=== PATIENT | male | born 1955 | race Caucasian/White ===

== ENCOUNTER 2020-09-08 12:47 | Outpatient (CLI) | payer MEDICARE | END 2020-09-08 12:48 | disposition home or self-care (01) | LOC: MRI 12:47 | PROVIDERS: ATTEND Internal Medicine Hematology & Oncology | DX: C34.90 Malignant neoplasm of unspecified part of unspecified bronchus or lung (principal); C79.51 Secondary malignant neoplasm of bone | CPT/HCPCS: 36415; 70553; 80053; 84153 ==

== ENCOUNTER 2020-09-09 09:43 | Outpatient (CLI) | payer MEDICARE | END 2020-09-09 09:44 | disposition home or self-care (01) | LOC: PET 09:43 | PROVIDERS: ATTEND Internal Medicine Hematology & Oncology | DX: C34.90 Malignant neoplasm of unspecified part of unspecified bronchus or lung (principal); C79.51 Secondary malignant neoplasm of bone; J98.4 Other disorders of lung | CPT/HCPCS: 78815; A9552 ==

== ENCOUNTER 2020-09-12 22:04 | Inpatient (IN) | payer MEDICARE ==
[2020-09-12] MEDS ORDERED: Ketorolac Tromethamine 30 MG/ML VIAL ONE (22:54)
[2020-09-12] MEDS ORDERED: Acetaminophen 500 MG TAB ONE (22:54)
[2020-09-12 23:10] LABS: INR-International Normal Ratio 1.1; PTT 27.3 sec (22.9-36.1); Prothrombin Time 13.9 sec (12.0-14.7)
[2020-09-12 23:20] LABS: ALT (SGPT) 53 U/L (8-55); AST (SGOT) 24 U/L (5-34); Albumin 3.6 g/dL (3.4-4.8); Alkaline Phosphatase 124 U/L (40-110); Anion Gap 15 mmol/L (10-20); BUN (Urea Nitrogen) 16 mg/dL (8.4-25.7); Bilirubin, Total 0.7 mg/dL (0.2-1.2); Calc. Creatinine Clearance 0 mL/min (70-130); Calcium 9.5 mg/dL (7.8-10.44); Carbon Dioxide 27 mmol/L (23-31); Chloride 97 mmol/L (98-107); Globulin 2.7 g/dL (2.4-3.5); Glucose 120 mg/dL (80-115); Potassium 4.4 mmol/L (3.5-5.1); Protein, Total 6.3 g/dL (5.8-8.1); Sodium 135 mmol/L (136-145)
[2020-09-12 23:34] LABS: Band 13 % (5-11); Lymphocytes 2 % (21-51); MDiff Complete? YES; Mean Corpuscular HGB CONC 33.2 g/dL (32.0-36.0); Mean Corpuscular Volume 96.3 fL (78.0-98.0); Mean Platelet Volume 8.5 fL (7.4-10.4); Monocytes 7 % (0-10); Neutrophil 77 % (42-75); Platelet Count 349 thou/uL (130-400); RBC Distribution Width 11.8 % (11.5-14.5); Red Blood Cell (RBC) Count 4.38 mill/uL (4.70-6.10); Reflex for Review?? YES; White Blood Cell (WBC) Count 43.3 thou/uL (4.8-10.8)
[2020-09-12 23:47] LABS: Bilirubin Negative (Negative); Blood, Urine Negative (Negative); Clarity Clear (Clear); Glucose, Urine (Dipstick) Normal (Negative); Ketone, Urine Negative (Negative); Leukocyte Negative Leu/uL (Negative); Nitrite Negative (Negative); Protein, Urine (Dipstick) Negative (Neg-Trace); Urobilinogen Normal mg/dL (Less than 2)
[2020-09-13] MEDS ORDERED: Cefepime 2 GM VIAL ONE (00:11)
[2020-09-13] MEDS ORDERED: cloNIDine 0.1 MG TAB ONE (00:11)
[2020-09-13] MEDS ORDERED: Vancomycin 1.5 GRAM/300 ML BAG 1.5 GM in Premix Bag 1 BAG IVPB SCH (00:15)
[2020-09-13] MEDS ORDERED: Ondansetron ODT 4 MG TAB PO PRN (02:18)
[2020-09-13] MEDS ORDERED: Acetaminophen 500 MG TAB PO PRN (02:18)
[2020-09-13] MEDS ORDERED: Ondansetron PF 4 MG/2 ML Vial IVP PRN (02:18)
[2020-09-13 03:24] VITALS: BMI 21.7
[2020-09-13] MEDS: Sodium Chloride 0.9% 1,000 ML IV SCH ×3 (03:56→20:34)
[2020-09-13 04:19] LABS: White Blood Cell (WBC) Count 47.1 thou/uL (4.8-10.8)
[2020-09-13 04:42] LABS: ALT (SGPT) 42 U/L (8-55); AST (SGOT) 18 U/L (5-34); Albumin 2.9 g/dL (3.4-4.8); Alkaline Phosphatase 98 U/L (40-110); Anion Gap 15 mmol/L (10-20); BUN (Urea Nitrogen) 18 mg/dL (8.4-25.7); Bilirubin, Total 0.9 mg/dL (0.2-1.2); Calc. Creatinine Clearance 71 mL/min (70-130); Calcium 8.7 mg/dL (7.8-10.44); Carbon Dioxide 25 mmol/L (23-31); Chloride 102 mmol/L (98-107); Globulin 2.3 g/dL (2.4-3.5); Glucose 129 mg/dL (80-115); Potassium 4.2 mmol/L (3.5-5.1); Protein, Total 5.2 g/dL (5.8-8.1); Sodium 138 mmol/L (136-145)
[2020-09-13 04:46] LABS: Hemoglobin 12.4 g/dL (14.0-18.0); Mean Corpuscular HGB CONC 32.7 g/dL (32.0-36.0); Mean Corpuscular Hemoglobin 31.6 pg (27.0-31.0); Mean Corpuscular Volume 96.5 fL (78.0-98.0); Mean Platelet Volume 8.2 fL (7.4-10.4); Platelet Count 320 thou/uL (130-400); RBC Distribution Width 11.9 % (11.5-14.5); Red Blood Cell (RBC) Count 3.92 mill/uL (4.70-6.10)
[2020-09-13 05:06] LABS: Band 23 % (5-11); Lymphocytes 5 % (21-51); MDiff Complete? YES; Monocytes 3 % (0-10); Neutrophil 69 % (42-75)
[2020-09-13] MEDS: Ketorolac Tromethamine 30 MG/ML VIAL IVP SCH ×4 (05:49→22:31)
[2020-09-13] MEDS: Famotidine 20 MG TAB PO SCH ×2 (09:51→20:34)
[2020-09-13] MEDS: Cefepime 2 GM in Sodium Chloride 0.9% 100 ML IVPB SCH ×3 (09:51→22:32)
[2020-09-13] MEDS: Vancomycin 1 GM in Premix Bag 1 BAG IVPB SCH (12:38)
[2020-09-13] MEDS ORDERED: Morphine 2 MG/ML VIAL SLOW IVP PRN (17:17)
[2020-09-14] MEDS: Vancomycin 1 GM in Premix Bag 1 BAG IVPB SCH ×2 (01:14→12:37)
[2020-09-14] MEDS: Ketorolac Tromethamine 30 MG/ML VIAL IVP SCH ×4 (05:21→23:49)
[2020-09-14] MEDS: Sodium Chloride 0.9% 1,000 ML IV SCH ×3 (06:00→19:30)
[2020-09-14] MEDS: Famotidine 20 MG TAB PO SCH ×2 (09:05→22:09)
[2020-09-14] MEDS: Cefepime 2 GM in Sodium Chloride 0.9% 100 ML IVPB SCH ×3 (09:05→23:49)
[2020-09-14 10:07] LABS: Anion Gap 13 mmol/L (10-20); BUN (Urea Nitrogen) 16 mg/dL (8.4-25.7); Calc. Creatinine Clearance 92 mL/min (70-130); Calcium 8.3 mg/dL (7.8-10.44); Carbon Dioxide 25 mmol/L (23-31); Chloride 105 mmol/L (98-107); Glucose 113 mg/dL (80-115); Potassium 3.7 mmol/L (3.5-5.1); Sodium 139 mmol/L (136-145)
[2020-09-14 10:17] LABS: Band 18 % (5-11); Eosinophils 1 % (0-10); Hemoglobin 12.5 g/dL (14.0-18.0); Lymphocytes 1 % (21-51); MDiff Complete? YES; Mean Corpuscular HGB CONC 32.4 g/dL (32.0-36.0); Mean Corpuscular Hemoglobin 31.9 pg (27.0-31.0); Mean Corpuscular Volume 98.4 fL (78.0-98.0); Mean Platelet Volume 8.3 fL (7.4-10.4); Monocytes 5 % (0-10); Neutrophil 74 % (42-75); Platelet Count 311 thou/uL (130-400); Platelet Morphology Comment Appears Adequate; Polychromasia SLIGHT = 2-3 cells (100X) (0-2/hpf); RBC Distribution Width 11.9 % (11.5-14.5); Red Blood Cell (RBC) Count 3.91 mill/uL (4.70-6.10); White Blood Cell (WBC) Count 35.8 thou/uL (4.8-10.8)
[2020-09-14] MEDS: Morphine 4 MG/ML VIAL SLOW IVP PRN ×2 (15:51→22:31)
[2020-09-14] MEDS ORDERED: fentaNYL 50 mcg/hour Patch TD SCH (17:00)
[2020-09-15] MEDS ORDERED: Vancomycin 1.5 GRAM/300 ML BAG 1.5 GM in Premix Bag 1 BAG IVPB SCH (01:00)
[2020-09-15] MEDS: Sodium Chloride 0.9% 1,000 ML IV SCH ×2 (05:38→12:34)
[2020-09-15] MEDS: Ketorolac Tromethamine 30 MG/ML VIAL IVP SCH ×2 (05:38→12:34)
[2020-09-15] MEDS: Famotidine 20 MG TAB PO SCH (09:03)
[2020-09-15] MEDS: Cefepime 2 GM in Sodium Chloride 0.9% 100 ML IVPB SCH (09:07)
[2020-09-15 11:44] LABS: Hemoglobin 12.4 g/dL (14.0-18.0); Mean Corpuscular Hemoglobin 33.3 pg (27.0-31.0); Mean Corpuscular Volume 97.8 fL (78.0-98.0); Mean Platelet Volume 8.3 fL (7.4-10.4); Platelet Count 294 thou/uL (130-400); RBC Distribution Width 12.1 % (11.5-14.5); Red Blood Cell (RBC) Count 3.73 mill/uL (4.70-6.10); White Blood Cell (WBC) Count 36.9 thou/uL (4.8-10.8)
[2020-09-15 13:57] VITALS: TEMP 98.2
[2020-09-15 15:48] VITALS: BP 111/71
== END 2020-09-15 15:49 | disposition home or self-care (01) | DRG 844 ==
LOC: ERS 22:04 → SURG B 09-13 00:56
PROVIDERS: ADMIT Family Medicine; ATTEND Internal Medicine
DX: C79.89 Secondary malignant neoplasm of other specified sites (principal); I96 Gangrene, not elsewhere classified; G93.49 Other encephalopathy; C80.1 Malignant (primary) neoplasm, unspecified; C79.51 Secondary malignant neoplasm of bone; D72.823 Leukemoid reaction; Z85.72 Personal history of non-Hodgkin lymphomas; Z98.890 Other specified postprocedural states
CPT/HCPCS: 36415; 71045; 77014; 77290; 77307; 77334; 80048; 80053; 80202; 81003; 83605; 85025; 85027; 85060; 85610; 85730; 87040; 87086; 96365; 96375; J0692; J1885; J2270; J3370; J3490

== ENCOUNTER 2021-05-11 08:28 | Outpatient (CLI) | payer MEDICARE ==
[2021-05-11] MEDS ORDERED: Iopamidol-370 76% 500 ML 1 ML ONE (10:43)
== END 2021-05-11 08:29 | disposition home or self-care (01) ==
LOC: BICCT 08:28
PROVIDERS: ATTEND Internal Medicine Hematology & Oncology
DX: R10.2 Pelvic and perineal pain (principal); C34.90 Malignant neoplasm of unspecified part of unspecified bronchus or lung; C79.51 Secondary malignant neoplasm of bone; M89.9 Disorder of bone, unspecified
CPT/HCPCS: 72193

== ENCOUNTER 2021-06-30 09:36 | Day surgery (SDC) | payer MEDICARE ==
[2021-06-30 08:13] VITALS: BMI 19.8
[2021-06-30] MEDS ORDERED: Sodium Bicarbonate 2.5 MEQ/5 ML VIAL ONE ×2 (09:56→10:51)
[2021-06-30] MEDS ORDERED: Lidocaine 1% PF 5 ML VIAL ONE ×2 (09:56→10:51)
[2021-06-30 11:39] VITALS: BP 113/80; TEMP 97.6
== END 2021-06-30 11:30 | disposition home or self-care (01) ==
LOC: ULT 09:36
PROVIDERS: ATTEND Internal Medicine Hematology & Oncology
PROC: 0JB83ZX Excision of Abdomen Subcutaneous Tissue and Fascia, Percutaneous Approach, Diagnostic (ICD-10-PCS; principal; 2021-06-30)
DX: C79.89 Secondary malignant neoplasm of other specified sites (principal); C79.51 Secondary malignant neoplasm of bone; C34.90 Malignant neoplasm of unspecified part of unspecified bronchus or lung; Z85.72 Personal history of non-Hodgkin lymphomas
CPT/HCPCS: 20206; 88305; 88333; 88334

== ENCOUNTER 2021-07-14 12:51 | Outpatient (CLI) | payer MEDICARE ==
[2021-07-14 15:04] LABS: Hemoglobin 10.4 g/dL (13.5-17.5); Mean Corpuscular Hemoglobin 30.1 pg (27.0-33.0); Mean Corpuscular Volume 96.8 fl (81.2-95.1); Mean Platelet Volume 10.2 fl (7.4-10.4); Platelet Count 281 10x3/uL (150-450); RBC Distribution Width 16.8 % (11.5-14.5); Red Blood Cell (RBC) Count 3.46 10x6/uL (4.32-5.72); White Blood Cell (WBC) Count 39.8 10x3/uL (3.5-10.5)
[2021-07-14 15:07] LABS: Anion Gap 16 mmol/L (10-20); BUN (Urea Nitrogen) 13 mg/dL (8.4-25.7); Calc. Creatinine Clearance 0 mL/min (70-130); Calcium 8.7 mg/dL (7.8-10.44); Carbon Dioxide 27 mmol/L (23-31); Chloride 98 mmol/L (98-107); Glucose 80 mg/dL (80-115); Potassium 4.2 mmol/L (3.5-5.1); Sodium 137 mmol/L (136-145)
[2021-07-14 16:18] LABS: Band 7 % (5-11); Lymphocytes 1 % (21-51); MDiff Complete? YES; Monocytes 5 % (0-10); Neutrophil 87 % (42-75)
[2021-07-14 16:19] LABS: Anisocytosis SLIGHT = 6-15 cells (100X) (0-5/hpf); Hypochromia SLIGHT = 6-15 cells (100X) (0-5/hpf); Platelet Morphology Comment Appears Adequate; Polychromasia SLIGHT = 2-3 cells (100X) (0-2/hpf)
[2021-07-15 12:32] LABS: SARS-CoV-2 PCR by NAA Not Detected (NotDetected)
== END 2021-07-14 12:52 | disposition home or self-care (01) ==
LOC: LABBT 12:51
PROVIDERS: ATTEND Specialist
DX: Z01.818 Encounter for other preprocedural examination (principal); Z20.822 Contact with and (suspected) exposure to COVID-19
CPT/HCPCS: 80048; 85025; 93005; U0003; U0005; 93010

== ENCOUNTER 2021-07-17 11:29 | Day surgery (SDC) | payer MEDICARE ==
[2021-07-14 12:17] VITALS: BMI 19.6
[2021-07-17] MEDS ORDERED: Acetaminophen 500 MG TAB ONE (12:04)
[2021-07-17] MEDS ORDERED: Ketorolac Tromethamine 30 MG/ML VIAL ONE (12:04)
[2021-07-17] MEDS ORDERED: Lidocaine 1% w/Epinephrine 1:100K 20 ML VIAL ONE (12:17)
[2021-07-17] MEDS ORDERED: Bupivacaine PF 0.5% 30 ML VIAL ONE (12:17)
[2021-07-17] MEDS ORDERED: Propofol 500 MG/50 ML VIAL ONE (12:31)
[2021-07-17] MEDS ORDERED: Midazolam HCl 2 mg/2 ml Vial ONE (12:31)
[2021-07-17] MEDS ORDERED: fentaNYL Citrate/PF 100 MCG/2 ML SYRINGE ONE (12:31)
[2021-07-17] MEDS ORDERED: ceFAZolin (BATCH) 2 GM/100 ML BAG ONE (12:45)
[2021-07-17] MEDS ORDERED: Glycopyrrolate 0.2 MG/ML 5 ML SYRINGE ONE (13:22)
[2021-07-17] MEDS ORDERED: PROPOFOL 200 MG/20 ML VIAL ONE (13:22)
== END 2021-07-17 15:10 | disposition home or self-care (01) ==
LOC: SDC 11:29
PROVIDERS: ATTEND Specialist
PROC: 0JH60WZ Insertion of Totally Implantable Vascular Access Device into Chest Subcutaneous Tissue and Fascia, Open Approach (ICD-10-PCS; principal; 2021-07-17)
PROC: 02HV33Z Insertion of Infusion Device into Superior Vena Cava, Percutaneous Approach (ICD-10-PCS; 2021-07-17)
DX: C80.1 Malignant (primary) neoplasm, unspecified (principal); C79.51 Secondary malignant neoplasm of bone; I10 Essential (primary) hypertension
CPT/HCPCS: 36561; 71045; C1788; J0690; J1642; J1885; J2250; J2704; S0020

== ENCOUNTER 2021-08-04 11:40 | Day surgery (SDC) | payer MEDICARE ==
[2021-08-04] MEDS ORDERED: Acetaminophen 500 MG TAB ONE (11:46)
[2021-08-04] MEDS ORDERED: diphenhydrAMINE 25 MG CAP ONE (11:47)
[2021-08-04 15:36] VITALS: BP 110/59; TEMP 98.1
== END 2021-08-04 15:36 | disposition home or self-care (01) ==
LOC: ONC/OP 11:40
PROVIDERS: ATTEND Internal Medicine Hematology & Oncology
PROC: 30233N1 Transfusion of Nonautologous Red Blood Cells into Peripheral Vein, Percutaneous Approach (ICD-10-PCS; principal; 2021-08-04)
DX: D64.9 Anemia, unspecified (principal)
CPT/HCPCS: 36430; 86850; 86900; 86901; J1642; P9016

== ENCOUNTER 2021-09-01 08:38 | Day surgery (SDC) | payer MEDICARE ==
[2021-09-01] MEDS ORDERED: Acetaminophen 500 MG TAB ONE (10:10)
[2021-09-01] MEDS ORDERED: diphenhydrAMINE 25 MG CAP ONE (10:10)
[2021-09-01 14:49] VITALS: TEMP 97.7
[2021-09-01] MEDS ORDERED: Sodium Chloride 0.9% 1,000 ML IV SCH (15:00)
[2021-09-01 16:29] VITALS: BP 110/66
[2021-09-01 17:21] LABS: Anisocytosis SLIGHT = 6-15 cells (100X) (0-5/hpf); Band 29 % (5-11); Hemoglobin 7.3 g/dL (14.0-18.0); Lymphocytes 3 % (21-51); MDiff Complete? YES; Mean Corpuscular HGB CONC 31.3 g/dL (32.0-36.0); Mean Corpuscular Hemoglobin 30.7 pg (27.0-31.0); Mean Platelet Volume 7.9 fL (7.4-10.4); Monocytes 1 % (0-10); Neutrophil 67 % (42-75); Platelet Count 93 thou/uL (130-400); Platelet Morphology Comment Appears Decreased; Polychromasia SLIGHT = 2-3 cells (100X) (0-2/hpf); RBC Distribution Width 18.4 % (11.5-14.5); Red Blood Cell (RBC) Count 2.38 mill/uL (4.70-6.10); Toxic Granulation SLIGHT; White Blood Cell (WBC) Count 30.4 thou/uL (4.8-10.8)
== END 2021-09-01 16:39 | disposition home or self-care (01) ==
LOC: ONC/OP 08:38
PROVIDERS: ATTEND Internal Medicine Hematology & Oncology
PROC: 30233N1 Transfusion of Nonautologous Red Blood Cells into Peripheral Vein, Percutaneous Approach (ICD-10-PCS; principal; 2021-09-01)
DX: D64.9 Anemia, unspecified (principal); C34.90 Malignant neoplasm of unspecified part of unspecified bronchus or lung; C79.51 Secondary malignant neoplasm of bone
CPT/HCPCS: 36430; 36591; 82607; 82728; 82746; 83540; 83550; 85025; 86850; 86900; 86901; 96360; J1642; P9016

== ENCOUNTER 2021-09-08 10:01 | Emergency (ER) | payer MEDICARE, OTHER ==
[2021-09-08 10:59] LABS: Hemoglobin 7.4 g/dL (14.0-18.0); Mean Corpuscular HGB CONC 30.9 g/dL (32.0-36.0); Mean Corpuscular Hemoglobin 31.3 pg (27.0-31.0); Mean Platelet Volume 8.9 fL (7.4-10.4); Platelet Count 93 thou/uL (130-400); RBC Distribution Width 17.2 % (11.5-14.5); Red Blood Cell (RBC) Count 2.35 mill/uL (4.70-6.10); White Blood Cell (WBC) Count 16.4 thou/uL (4.8-10.8)
[2021-09-08 11:20] LABS: ALT (SGPT) 21 U/L (8-55); AST (SGOT) 19 U/L (5-34); Albumin 2.5 g/dL (3.4-4.8); Alkaline Phosphatase 179 U/L (40-110); Anion Gap 13 mmol/L (10-20); BUN (Urea Nitrogen) 17 mg/dL (8.4-25.7); Bilirubin, Total 0.5 mg/dL (0.2-1.2); Calc. Creatinine Clearance 0 mL/min (70-130); Calcium 7.9 mg/dL (7.8-10.44); Carbon Dioxide 25 mmol/L (23-31); Chloride 103 mmol/L (98-107); Estimated GFR 102; Globulin 2.6 g/dL (2.4-3.5); Glucose 111 mg/dL (80-115); Potassium 4.1 mmol/L (3.5-5.1); Protein, Total 5.1 g/dL (5.8-8.1); Sodium 137 mmol/L (136-145)
[2021-09-08 11:34] LABS: Band 32 % (5-11); Lymphocytes 1 % (21-51); MDiff Complete? YES; Neutrophil 66 % (42-75); Platelet Morphology Comment Appears Decreased; Polychromasia SLIGHT = 2-3 cells (100X) (0-2/hpf); Reactive Lymphocytes 1 % (0-10); Tear Drops SLIGHT = 2-5 cells (100X) (0-1/hpf)
[2021-09-08] MEDS ORDERED: Acetaminophen 500 MG TAB ONE (11:41)
[2021-09-08] MEDS ORDERED: diphenhydrAMINE 25 MG CAP ONE (11:41)
== END 2021-09-08 14:25 | disposition home or self-care (01) ==
LOC: ERS 10:01
DX: D64.9 Anemia, unspecified (principal); D09.9 Carcinoma in situ, unspecified; R53.83 Other fatigue
CPT/HCPCS: 36430; 80053; 85025; 86850; 86900; 86901; 86920; 96374; 99284; P9016; 36415

== ENCOUNTER 2021-09-18 11:39 | Day surgery (SDC) | payer MEDICARE, OTHER ==
[2021-09-18] MEDS ORDERED: Acetaminophen 500 MG TAB ONE (12:39)
[2021-09-18] MEDS ORDERED: diphenhydrAMINE 25 MG CAP ONE (12:40)
[2021-09-18 13:37] VITALS: TEMP 98.3
[2021-09-18 15:52] VITALS: BP 110/58
== END 2021-09-18 15:52 | disposition home or self-care (01) ==
LOC: ONC/OP 11:39
PROVIDERS: ATTEND Internal Medicine Hematology & Oncology
PROC: 30233N1 Transfusion of Nonautologous Red Blood Cells into Peripheral Vein, Percutaneous Approach (ICD-10-PCS; principal; 2021-09-18)
DX: D64.9 Anemia, unspecified (principal); D69.6 Thrombocytopenia, unspecified
CPT/HCPCS: 36430; 86850; 86900; 86901; J1642; P9016

== ENCOUNTER 2021-09-26 09:05 | Day surgery (SDC) | payer MEDICARE ==
[2021-09-26] MEDS ORDERED: Acetaminophen 500 MG TAB ONE (09:17)
[2021-09-26] MEDS ORDERED: diphenhydrAMINE 25 MG CAP ONE (09:17)
[2021-09-26 14:26] VITALS: TEMP 97.5
[2021-09-26 14:38] VITALS: BP 106/59
== END 2021-09-26 14:38 | disposition home or self-care (01) ==
LOC: ONC/OP 09:05
PROVIDERS: ATTEND Internal Medicine Hematology & Oncology
PROC: 30233N1 Transfusion of Nonautologous Red Blood Cells into Peripheral Vein, Percutaneous Approach (ICD-10-PCS; principal; 2021-09-26)
DX: D64.9 Anemia, unspecified (principal); D69.6 Thrombocytopenia, unspecified
CPT/HCPCS: 36430; 86850; 86900; 86901; J1642; P9016

== ENCOUNTER 2021-10-02 09:17 | Day surgery (SDC) | payer MEDICARE, OTHER ==
[2021-10-02] MEDS ORDERED: diphenhydrAMINE 25 MG CAP ONE (10:30)
[2021-10-02] MEDS ORDERED: Acetaminophen 500 MG TAB ONE (10:30)
[2021-10-02 14:56] VITALS: TEMP 97.8
[2021-10-02 14:58] VITALS: BP 80/45
== END 2021-10-02 15:42 | disposition home or self-care (01) ==
LOC: ONC/OP 09:17
PROVIDERS: ATTEND Internal Medicine Hematology & Oncology
PROC: 30233N1 Transfusion of Nonautologous Red Blood Cells into Peripheral Vein, Percutaneous Approach (ICD-10-PCS; principal; 2021-10-02)
PROC: 30233R1 Transfusion of Nonautologous Platelets into Peripheral Vein, Percutaneous Approach (ICD-10-PCS; 2021-10-02)
DX: D64.9 Anemia, unspecified (principal); D69.6 Thrombocytopenia, unspecified
CPT/HCPCS: 36430; 86850; 86900; 86901; P9016; P9035

== ENCOUNTER 2021-10-02 15:55 | Inpatient (IN) | payer MEDICARE, OTHER ==
[2021-10-02 19:47] VITALS: BMI 21.6
[2021-10-02] MEDS ORDERED: Acetaminophen 325 MG TAB PO PRN (20:48)
[2021-10-02] MEDS ORDERED: Ondansetron PF 4 MG/2 ML Vial IVP PRN (20:48)
[2021-10-02] MEDS ORDERED: Ibuprofen 800 MG TAB PO PRN (20:51)
[2021-10-02 22:34] LABS: ALT (SGPT) 15 U/L (8-55); AST (SGOT) 20 U/L (5-34); Albumin 2.3 g/dL (3.4-4.8); Alkaline Phosphatase 119 U/L (40-110); Anion Gap 12 mmol/L (10-20); BUN (Urea Nitrogen) 18 mg/dL (8.4-25.7); Bilirubin, Total 0.8 mg/dL (0.2-1.2); Calc. Creatinine Clearance 116 mL/min (70-130); Calcium 7.9 mg/dL (7.8-10.44); Carbon Dioxide 26 mmol/L (23-31); Chloride 100 mmol/L (98-107); Estimated GFR 104; Globulin 2.4 g/dL (2.4-3.5); Glucose 106 mg/dL (80-115); Potassium 3.5 mmol/L (3.5-5.1); Protein, Total 4.7 g/dL (5.8-8.1); Sodium 134 mmol/L (136-145)
[2021-10-02 23:05] LABS: Hemoglobin 5.9 g/dL (14.0-18.0); Mean Corpuscular HGB CONC 32.6 g/dL (32.0-36.0); Mean Corpuscular Hemoglobin 32.2 pg (27.0-31.0); Mean Corpuscular Volume 98.6 fL (78.0-98.0); Mean Platelet Volume 8.4 fL (7.4-10.4); Platelet Count 22 thou/uL (130-400); RBC Distribution Width 17.3 % (11.5-14.5); Red Blood Cell (RBC) Count 1.84 mill/uL (4.70-6.10); White Blood Cell (WBC) Count 0.9 thou/uL (4.8-10.8)
[2021-10-02 23:19] LABS: Band 16 % (5-11); Hypochromia SLIGHT = 6-15 cells (100X) (0-5/hpf); Lymphocytes 24 % (21-51); MDiff Complete? YES; Monocytes 12 % (0-10); Neutrophil 48 % (42-75); Platelet Morphology Comment Appears Decreased
[2021-10-03 00:09] LABS: Hemoglobin 5.7 g/dL (14.0-18.0); Platelet Count 24 thou/uL (130-400)
[2021-10-03 08:05] LABS: Hemoglobin 7.6 g/dL (14.0-18.0); Mean Corpuscular HGB CONC 33.1 g/dL (32.0-36.0); Mean Corpuscular Hemoglobin 32.3 pg (27.0-31.0); Mean Corpuscular Volume 97.6 fL (78.0-98.0); Mean Platelet Volume 9.7 fL (7.4-10.4); Platelet Count 25 thou/uL (130-400); RBC Distribution Width 16.8 % (11.5-14.5); Red Blood Cell (RBC) Count 2.34 mill/uL (4.70-6.10)
[2021-10-03] MEDS: Senokot S 8.6-50 MG TAB PO SCH ×2 (08:50→23:23)
[2021-10-03 09:00] LABS: Lymphocytes 40 % (21-51); MDiff Complete? YES; Monocytes 16 % (0-10); Neutrophil 44 % (42-75); Platelet Morphology Comment Appears Decreased; Polychromasia SLIGHT = 2-3 cells (100X) (0-2/hpf)
[2021-10-03] MEDS ORDERED: Famotidine/PF 20 mg/2ml Vial SLOW IVP SCH (09:00)
[2021-10-03 09:44] LABS: Anion Gap 10 mmol/L (10-20); BUN (Urea Nitrogen) 16 mg/dL (8.4-25.7); Calc. Creatinine Clearance 131 mL/min (70-130); Calcium 7.9 mg/dL (7.8-10.44); Carbon Dioxide 25 mmol/L (23-31); Chloride 101 mmol/L (98-107); Estimated GFR 108; Glucose 90 mg/dL (80-115); Potassium 3.2 mmol/L (3.5-5.1); Sodium 133 mmol/L (136-145)
[2021-10-03 12:20] LABS: Hemoglobin 7.1 g/dL (14.0-18.0)
[2021-10-03] MEDS: HYDROcodone/Acetaminophen 5/325 mg Tablet PO PRN (16:36)
[2021-10-03] MEDS: Albumin 25% 25 GM/100 ML BOT IVPB SCH ×2 (16:36→23:21)
[2021-10-03] MEDS ORDERED: Potassium Chloride 20 MEQ TAB PO SCH (17:00)
[2021-10-03] MEDS ORDERED: Activase 2 MG VIAL CATH SCH (17:15)
[2021-10-03] MEDS ORDERED: Sterile Water 10 ML VIAL IVP SCH (17:45)
[2021-10-03] MEDS: Docusate 100 MG CAP PO SCH (23:23)
[2021-10-04 06:09] LABS: Anion Gap 13 mmol/L (10-20); BUN (Urea Nitrogen) 13 mg/dL (8.4-25.7); Calc. Creatinine Clearance 118 mL/min (70-130); Calcium 7.7 mg/dL (7.8-10.44); Carbon Dioxide 25 mmol/L (23-31); Chloride 99 mmol/L (98-107); Estimated GFR 105; Glucose 89 mg/dL (80-115); Potassium 3.4 mmol/L (3.5-5.1); Sodium 134 mmol/L (136-145)
[2021-10-04 06:36] LABS: Hemoglobin 6.9 g/dL (14.0-18.0); Mean Corpuscular HGB CONC 33.9 g/dL (32.0-36.0); Mean Corpuscular Hemoglobin 32.6 pg (27.0-31.0); Mean Corpuscular Volume 96.1 fL (78.0-98.0); Mean Platelet Volume 8.2 fL (7.4-10.4); Platelet Count 24 thou/uL (130-400); RBC Distribution Width 16.5 % (11.5-14.5)
[2021-10-04 06:41] LABS: Band 56 % (5-11); Hypochromia SLIGHT = 6-15 cells (100X) (0-5/hpf); Lymphocytes 8 % (21-51); MDiff Complete? YES; Monocytes 12 % (0-10); Myelocyte 2 % (0-0); Neutrophil 21 % (42-75); Nucleated RBC 1 % (0); Platelet Morphology Comment Appears Decreased; Polychromasia SLIGHT = 2-3 cells (100X) (0-2/hpf); Toxic Granulation SLIGHT
[2021-10-04] MEDS ORDERED: Potassium Chloride 20 MEQ TAB PO SCH (08:30)
[2021-10-04] MEDS: HYDROcodone/Acetaminophen 5/325 mg Tablet PO PRN ×3 (09:00→23:18)
[2021-10-04] MEDS: Senokot S 8.6-50 MG TAB PO SCH ×2 (09:02→21:16)
[2021-10-04] MEDS: Docusate 100 MG CAP PO SCH ×2 (09:02→21:15)
[2021-10-04] MEDS: Polyethylene Glycol 3350 17 GM Packet PO SCH (09:02)
[2021-10-04] MEDS ORDERED: Albumin 25% 25 GM/100 ML BOT IVPB SCH ×2 (11:15→21:00)
[2021-10-05 06:21] LABS: Hemoglobin 7.4 g/dL (14.0-18.0); Mean Corpuscular HGB CONC 33.6 g/dL (32.0-36.0); Mean Corpuscular Hemoglobin 32.6 pg (27.0-31.0); Mean Corpuscular Volume 96.8 fL (78.0-98.0); Mean Platelet Volume 8.8 fL (7.4-10.4); Platelet Count 19 thou/uL (130-400); RBC Distribution Width 16.4 % (11.5-14.5); Red Blood Cell (RBC) Count 2.26 mill/uL (4.70-6.10); White Blood Cell (WBC) Count 15.5 thou/uL (4.8-10.8)
[2021-10-05 06:36] LABS: Anion Gap 12 mmol/L (10-20); BUN (Urea Nitrogen) 13 mg/dL (8.4-25.7); Calc. Creatinine Clearance 133 mL/min (70-130); Calcium 7.9 mg/dL (7.8-10.44); Carbon Dioxide 25 mmol/L (23-31); Chloride 100 mmol/L (98-107); Estimated GFR 109; Glucose 75 mg/dL (80-115); Potassium 3.8 mmol/L (3.5-5.1); Sodium 133 mmol/L (136-145)
[2021-10-05 07:42] LABS: Band 51 % (5-11); Lymphocytes 5 % (21-51); MDiff Complete? YES; Monocytes 3 % (0-10); Neutrophil 41 % (42-75); Platelet Morphology Comment Appears Decreased; Polychromasia SLIGHT = 2-3 cells (100X) (0-2/hpf)
[2021-10-05] MEDS: Docusate 100 MG CAP PO SCH (09:38)
[2021-10-05] MEDS: Senokot S 8.6-50 MG TAB PO SCH (09:38)
[2021-10-05] MEDS: Polyethylene Glycol 3350 17 GM Packet PO SCH (09:38)
[2021-10-05] MEDS: HYDROcodone/Acetaminophen 5/325 mg Tablet PO PRN (09:48)
[2021-10-05] MEDS ORDERED: Albumin 25% 25 GM/100 ML BOT IVPB SCH (11:00)
[2021-10-05 11:28] VITALS: BP 107/52; TEMP 98
== END 2021-10-05 11:21 | disposition home or self-care (01) | DRG 314 ==
LOC: INTOOBSV 16:45 → 2NO 16:45 → OBSVTOIN 10-03 07:40 → T4-A 10-03 12:10
PROVIDERS: ADMIT Family Medicine; ATTEND Internal Medicine
PROC: 30233N1 Transfusion of Nonautologous Red Blood Cells into Peripheral Vein, Percutaneous Approach (ICD-10-PCS; 2021-10-02)
PROC: 30233R1 Transfusion of Nonautologous Platelets into Peripheral Vein, Percutaneous Approach (ICD-10-PCS; 2021-10-02)
PROC: 30233N1 Transfusion of Nonautologous Red Blood Cells into Peripheral Vein, Percutaneous Approach (ICD-10-PCS; principal; 2021-10-04)
DX: I95.9 Hypotension, unspecified (principal); D61.810 Antineoplastic chemotherapy induced pancytopenia; E44.0 Moderate protein-calorie malnutrition; C80.1 Malignant (primary) neoplasm, unspecified; D64.81 Anemia due to antineoplastic chemotherapy; T45.1X5A Adverse effect of antineoplastic and immunosuppressive drugs, initial encounter; K64.9 Unspecified hemorrhoids; K59.03 Drug induced constipation; T40.2X5A Adverse effect of other opioids, initial encounter; E87.6 Hypokalemia; Z20.822 Contact with and (suspected) exposure to COVID-19; Z79.899 Other long term (current) drug therapy; Z90.49 Acquired absence of other specified parts of digestive tract; Z98.890 Other specified postprocedural states; Z68.21 Body mass index [BMI] 21.0-21.9, adult; D69.6 Thrombocytopenia, unspecified
CPT/HCPCS: 36415; 36430; 71045; 80048; 80053; 85025; 86850; 86900; 86901; G0378; G0379; J1642; J2997; P9016; P9035; P9047; U0003; U0005

== ENCOUNTER 2021-10-13 09:44 | Inpatient (IN) | payer MEDICARE ==
[2021-10-13 14:27] LABS: Hemoglobin 6.5 g/dL (14.0-18.0); Mean Corpuscular HGB CONC 32.5 g/dL (32.0-36.0); Mean Corpuscular Hemoglobin 32.9 pg (27.0-31.0); Mean Platelet Volume 8.9 fL (7.4-10.4); Platelet Count 40 thou/uL (130-400); RBC Distribution Width 17.7 % (11.5-14.5); Red Blood Cell (RBC) Count 1.98 mill/uL (4.70-6.10); White Blood Cell (WBC) Count 37.1 thou/uL (4.8-10.8)
[2021-10-13] MEDS: Furosemide 40 MG/4 ML VIAL SLOW IVP SCH ×2 (14:27→22:14)
[2021-10-13] MEDS ORDERED: Morphine 2 MG/ML VIAL SLOW IVP PRN (14:38)
[2021-10-13 14:44] LABS: Anion Gap 13 mmol/L (10-20); BUN (Urea Nitrogen) 14 mg/dL (8.4-25.7); Calc. Creatinine Clearance 104 mL/min (70-130); Carbon Dioxide 27 mmol/L (23-31); Chloride 97 mmol/L (98-107); Estimated GFR 101; Glucose 140 mg/dL (80-115); Potassium 3.3 mmol/L (3.5-5.1); Sodium 134 mmol/L (136-145)
[2021-10-13 14:48] LABS: Anisocytosis SLIGHT = 6-15 cells (100X) (0-5/hpf); Band 34 % (5-11); Dohle Bodies SLIGHT; MDiff Complete? YES; Macrocytosis SLIGHT = 6-15 cells (100X) (0-5/hpf); Metamyelocyte 1 % (0-0); Monocytes 3 % (0-10); Neutrophil 61 % (42-75); Platelet Morphology Comment Appears Decreased; Polychromasia SLIGHT = 2-3 cells (100X) (0-2/hpf); Reactive Lymphocytes 1 % (0-10); Toxic Granulation SLIGHT
[2021-10-13] MEDS ORDERED: Ondansetron ODT 4 MG TAB PO PRN (15:24)
[2021-10-13] MEDS ORDERED: Ondansetron PF 4 MG/2 ML Vial IVP PRN (15:24)
[2021-10-13] MEDS ORDERED: HYDROcodone/Acetaminophen 5/325 mg Tablet PO PRN (15:31)
[2021-10-13] MEDS: Albumin 25% 25 GM/100 ML BOT IVPB SCH ×2 (15:54→22:14)
[2021-10-13] MEDS ORDERED: Acetaminophen 325 MG TAB PO PRN (18:31)
[2021-10-13] MEDS: Docusate 100 MG CAP PO SCH (22:29)
[2021-10-14] MEDS: Albumin 25% 25 GM/100 ML BOT IVPB SCH ×4 (04:11→19:42)
[2021-10-14 04:56] LABS: Anion Gap 12 mmol/L (10-20); BUN (Urea Nitrogen) 12 mg/dL (8.4-25.7); Calc. Creatinine Clearance 110 mL/min (70-130); Calcium 8.2 mg/dL (7.8-10.44); Carbon Dioxide 30 mmol/L (23-31); Chloride 94 mmol/L (98-107); Estimated GFR 103; Glucose 82 mg/dL (80-115); Sodium 133 mmol/L (136-145)
[2021-10-14 05:00] LABS: Band 53 % (5-11); Hemoglobin 6.8 g/dL (14.0-18.0); Hypochromia SLIGHT = 6-15 cells (100X) (0-5/hpf); Lymphocytes 3 % (21-51); MDiff Complete? YES; Mean Corpuscular HGB CONC 32.7 g/dL (32.0-36.0); Mean Corpuscular Hemoglobin 32.4 pg (27.0-31.0); Mean Corpuscular Volume 98.9 fL (78.0-98.0); Mean Platelet Volume 8.6 fL (7.4-10.4); Neutrophil 44 % (42-75); Platelet Count 37 thou/uL (130-400); Platelet Morphology Comment Appears Decreased; RBC Distribution Width 17.7 % (11.5-14.5); Red Blood Cell (RBC) Count 2.09 mill/uL (4.70-6.10); White Blood Cell (WBC) Count 27.4 thou/uL (4.8-10.8)
[2021-10-14] MEDS: Furosemide 40 MG/4 ML VIAL SLOW IVP SCH (05:52)
[2021-10-14] MEDS: Polyethylene Glycol 3350 17 GM Packet PO SCH (08:32)
[2021-10-14] MEDS: Lidocaine 5% Patch TD SCH (08:32)
[2021-10-14] MEDS: Docusate 100 MG CAP PO SCH ×2 (08:33→20:49)
[2021-10-14] MEDS: Fish Oil 1,000 MG CAP PO SCH (08:33)
[2021-10-14] MEDS: Cholecalciferol 1,000 UNITS (25 MCG) TAB PO SCH (08:35)
[2021-10-14] MEDS ORDERED: Iopamidol-370 76% 500 ML 1 ML ONE (11:00)
[2021-10-14 15:00] VITALS: BMI 21.5
[2021-10-14] MEDS ORDERED: Transdermal Patch Removal TOP SCH (21:00)
[2021-10-14] MEDS ORDERED: fentaNYL 50 mcg/hour Patch TD SCH (21:00)
[2021-10-14] MEDS ORDERED: HYDROcodone/Acetaminophen 10/325 mg Tablet PO PRN (21:36)
[2021-10-15] MEDS: Albumin 25% 25 GM/100 ML BOT IVPB SCH ×2 (00:07→05:34)
[2021-10-15] MEDS: Polyethylene Glycol 3350 17 GM Packet PO SCH (09:11)
[2021-10-15] MEDS: Docusate 100 MG CAP PO SCH (09:11)
[2021-10-15] MEDS: Lidocaine 5% Patch TD SCH (09:52)
[2021-10-15] MEDS: Cholecalciferol 1,000 UNITS (25 MCG) TAB PO SCH (09:54)
[2021-10-15] MEDS: Fish Oil 1,000 MG CAP PO SCH (09:54)
[2021-10-15 11:21] LABS: Band 7 % (5-11); Hemoglobin 7.5 g/dL (14.0-18.0); Lymphocytes 3 % (21-51); MDiff Complete? YES; Mean Corpuscular HGB CONC 33.5 g/dL (32.0-36.0); Mean Corpuscular Hemoglobin 33.3 pg (27.0-31.0); Mean Corpuscular Volume 99.3 fL (78.0-98.0); Mean Platelet Volume 8.8 fL (7.4-10.4); Monocytes 2 % (0-10); Neutrophil 88 % (42-75); Platelet Count 42 thou/uL (130-400); Platelet Morphology Comment Appears Decreased; RBC Distribution Width 17.5 % (11.5-14.5); RBC Morphology Normal; Red Blood Cell (RBC) Count 2.26 mill/uL (4.70-6.10); White Blood Cell (WBC) Count 33.6 thou/uL (4.8-10.8)
[2021-10-15 11:22] LABS: Anion Gap 14 mmol/L (10-20); BUN (Urea Nitrogen) 10 mg/dL (8.4-25.7); Calc. Creatinine Clearance 122 mL/min (70-130); Calcium 8.2 mg/dL (7.8-10.44); Carbon Dioxide 30 mmol/L (23-31); Chloride 93 mmol/L (98-107); Estimated GFR 106; Glucose 95 mg/dL (80-115); Magnesium 1.2 mg/dL (1.6-2.6); Sodium 134 mmol/L (136-145)
[2021-10-15 11:43] LABS: Potassium 2.7 mmol/L (3.5-5.1)
[2021-10-15] MEDS ORDERED: Electrolyte Replacement Protocol 1 EACH FS SCH (11:45)
[2021-10-15] MEDS ORDERED: Magnesium Sulfate In Water 4 GM in Premix Bag 1 BAG IVPB SCH (12:45)
[2021-10-15] MEDS: Potassium Chloride 20 MEQ in Premix Bag 1 BAG IVPB SCH ×4 (13:45→16:58)
[2021-10-15 16:05] VITALS: BP 127/76; TEMP 99.3
== END 2021-10-15 18:30 | disposition home health service (06) | DRG 811 ==
LOC: MSONC 13:01 → OBSVTOIN 10-14 09:48
PROVIDERS: ADMIT Internal Medicine; ATTEND Family Medicine
PROC: 30233N1 Transfusion of Nonautologous Red Blood Cells into Peripheral Vein, Percutaneous Approach (ICD-10-PCS; principal; 2021-10-13)
DX: D64.81 Anemia due to antineoplastic chemotherapy (principal); E43 Unspecified severe protein-calorie malnutrition; E87.1 Hypo-osmolality and hyponatremia; D84.821 Immunodeficiency due to drugs; B02.29 Other postherpetic nervous system involvement; C79.51 Secondary malignant neoplasm of bone; C34.90 Malignant neoplasm of unspecified part of unspecified bronchus or lung; T45.1X5A Adverse effect of antineoplastic and immunosuppressive drugs, initial encounter; Z20.822 Contact with and (suspected) exposure to COVID-19; C76.51 Malignant neoplasm of right lower limb; E87.6 Hypokalemia; E83.42 Hypomagnesemia; K59.00 Constipation, unspecified; D69.6 Thrombocytopenia, unspecified; K59.09 Other constipation; Z28.21 Immunization not carried out because of patient refusal; Z68.21 Body mass index [BMI] 21.0-21.9, adult; Z79.899 Other long term (current) drug therapy; Z85.72 Personal history of non-Hodgkin lymphomas; Z90.49 Acquired absence of other specified parts of digestive tract; Z98.890 Other specified postprocedural states; Z80.42 Family history of malignant neoplasm of prostate; Z80.8 Family history of malignant neoplasm of other organs or systems; Z87.891 Personal history of nicotine dependence
CPT/HCPCS: 36415; 36430; 71260; 74018; 74177; 80048; 80053; 82248; 83615; 83735; 84100; 84132; 84550; 85025; 86850; 86900; 86901; 93306; 96374; 96376; G0378; J1642; J1940; J3475; J3480; P9016; P9047; Q9967; U0003; U0005